=== PATIENT | female | born 1990 | race Caucasian/White ===

== ENCOUNTER 2021-02-04 15:23 | Emergency (ER) | payer OTHER ==
[2021-02-04 15:35] VITALS: BP 138/85; PULSE 105; TEMP 98; BMI 21.1
[2021-02-04] MEDS ORDERED: ONDANSETRON *ODT* 4 MG TABLET SL ONE (16:58)
[2021-02-04 18:04] LABS: HCG,QUALITATIVE URINE NEGATIVE; URINE APPEARANCE CLEAR; URINE BILIRUBIN NEGATIVE (NEGATIVE); URINE COLOR YELLOW; URINE GLUCOSE (UA) NEGATIVE (NEGATIVE)
[2021-02-04 18:05] LABS: PH,URINE 6.5 (5.0-8.0); URINE KETONE 40 mg/dl (NEGATIVE); URINE LEUK ESTERASE 1+ (NEGATIVE); URINE NITRITE NEGATIVE (NEGATIVE); URINE PROTEIN NEGATIVE (NEGATIVE); URINE UROBILINOGEN 0.2 mg/dL (0.2-1.0)
[2021-02-04 18:06] LABS: EPI CELLS 2+ /uL (0-25.1); URINE RBC 0-3 /uL (0-23.9)
[2021-02-04 18:07] LABS: URINE BACTERIA FEW /uL (0-1359)
== END 2021-02-04 21:01 | disposition home or self-care (01) ==
LOC: JER 15:23
DX: R05.1 Acute cough (principal); R51.9 Headache, unspecified; J06.9 Acute upper respiratory infection, unspecified; Z11.52 Encounter for screening for COVID-19
CPT/HCPCS: 81003; 84703; 87086; 87804; 99283-25; C9803; U0003; U0005